=== PATIENT | female | born 1965 | race Caucasian/White ===

== ENCOUNTER 2024-07-26 14:19 | Emergency (ER) | payer OTHER, SELFPAY ==
[2024-07-26 14:23] VITALS: BP 148/81; PULSE 126; TEMP 37; O2SAT 98; BMI 20.5
--- NOTE | 2024-07-26 14:30 | ECG_ITS ---
[facility] Test Date: 2024-07-26 Pat Name: PARKER PUTNAM Department: Room: - Gender: Female [employer] Developer: : 1965 Requested By: Order Number: [id number] Reading MD: RAMSEY NAZARIO Measurements Intervals [place] Rate: 107 P: 67 WI: 140 QRS: 53 QRSD: 82 T: 66 QT: 334 QTc: 397 Interpretive Statements 1120 Sinus tachycardia 9140 abnormal rhythm ECG Compared to ECG 06/20/2019 05:56:33 Sinus rhythm no longer present Electronically Signed On 07-26-2024 18:03:50 EST by RAMSEY NAZARIO
[2024-07-26 14:31] VITALS: PULSE 108
[2024-07-26 14:33] VITALS: BP 132/87; PULSE 113
[2024-07-26 14:40] VITALS: O2SAT 99
[2024-07-26 14:45] LABS: Basophils Absolute Auto 0.1 10^3/uL (0.0-0.1); Basophils Percent Auto 0.8 % (0.2-2.0); Eosinophils Absolute Auto 0.3 10^3/uL (0.0-0.7); Hematocrit 44.1 % (36.0-48.0); Immature Granulocytes Abs Auto 0.01 10^3/uL (0.00-0.03); Immature Granulocytes Pct Auto 0.2 % (0.0-0.5); Lymphocytes Absolute Auto 3.6 10^3/uL (1.2-3.8); Lymphocytes Percent Auto 55.4 % (20.5-60.0); Mean Corpuscular Hemoglobin 32.8 pg (26.7-34.0); Mean Corpuscular Volume 96.5 fL (81.0-99.0); Monocytes Absolute Auto 0.4 10^3/uL (0.3-0.8); Monocytes Percent Auto 5.4 % (1.7-12.0); Neutrophils Absolute Auto 2.2 10^3/uL (1.4-6.5); Neutrophils Percent Auto 34.2 % (43.0-75.0); Platelet Count 193 10^3/uL (150-450); Red Blood Count 4.57 10^6/uL (4.20-5.40); Red Cell Distribution Width 12.3 % (11.0-15.0); White Blood Count 6.5 10^3/uL (4.0-11.0)
[2024-07-26] MEDS: KETOROLAC TROMETHAMINE 30 MG/ML VIAL 15 MG IVP (14:54)
[2024-07-26] MEDS: FAMOTIDINE/PF 20 MG/2 ML VIAL IV (14:54)
[2024-07-26 14:59] LABS: Prothrombin Time 9.7 sec (9.0-11.6)
[2024-07-26 15:00] VITALS: BP 134/82; PULSE 100; O2SAT 97
[2024-07-26 15:00] LABS: INR <0.93
[2024-07-26 15:01] LABS: Alanine Aminotransferase 25 U/L (14-59); Albumin Level 3.5 g/dL (3.4-5.0); Alkaline Phosphatase 82 U/L (46-116); Anion Gap 12.2; Aspartate Amino Transferase 28 U/L (15-37); BUN Creatinine Ratio 9.2; Bilirubin Total 0.4 mg/dL (0.2-1.0); Calcium 9.2 mg/dL (8.5-10.1); Carbon Dioxide 26.1 mmol/L (21.0-32.0); Chloride 109 mmol/L (98-107); D Dimer 0.46 mg/L FEU (<=0.59); Estimated GFR (African America >60 (>=60 mL/min/1.73m^2); Estimated GFR (Non-African Ame >60 (>=60 mL/min/1.73m^2); Globulin 3.6 g/dL; Glucose 126 mg/dL (74-106); Potassium 3.3 mmol/L (3.5-5.1); Sodium 144 mmol/L (136-145); Total Protein 7.1 g/dL (6.4-8.2)
[2024-07-26 15:04] LABS: Troponin I High Sensitivity 9.7 pg/mL (4.0-51.3)
[2024-07-26 15:34] VITALS: BP 124/82; PULSE 83; O2SAT 96
--- NOTE | 2024-07-26 15:44 | ED.CHESTPAI1 ---
HPI - Chest Pain General Chief Complaint: Chest Pain Stated Complaint: CHEST PAIN Time Seen by Provider: 07/26/24 14:29 Source: patient Mode of arrival: walk-in Limitations: no limitations History of Present Illness HPI narrative: The patient is coming to the ER with a 3 days history of left-sided chest pain that has been associated with taking deep breath or moving, mentioned that the pain is there only when she take a deep breath or moves or even touch the area, the patient denies any nausea vomiting coughing or any other concerns She is a smoker who smoked less than 1 pack of cigarette daily and is usually have a cough and that did not increase Related Data Previous Rx's ?Medication ?Instructions ?Recorded diclofenac sodium 75 mg 75 mg PO BID PRN pain #14 tabs 07/26/24 tablet,delayed release Allergies Allergy/AdvReac Type Severity Reaction Status Date / Time No Known Drug Allergies Allergy Verified 07/26/24 14:26 Review of Systems ROS Status of ROS 10 or more systems reviewed and unremarkable except as noted in history and below PFSH PFSH Social History Little interest or pleasure in doing things: not at all Feeling down, depressed, or hopeless: not at all Exam Narrative Exam Narrative: Nurses notes and vital signs reviewed and patient is not hypoxic. General: Well-appearing and in no apparent distress. Skin: Warm, dry, no pallor noted. No rash. Head: Normocephalic, atraumatic. Neck: Supple, non-tender. Eye: Pupils are equal, round and EOMI. No scleral icterus. Ears, Nose, Mouth, and Throat: TM are clear, no nasal mucosal hypertrophy. Oral mucosa is moist, no posterior oropharynx erythema, uvula is mid-line Cardiovascular: Regular Rate and Rhythm without murmur, gallop or rub. Respiratory: No accessory muscle use or respiratory distress. Lungs are clear to auscultation, no wheezing, rales or rhonchi Chest Wall: There is tenderness upon palpation of the left-sided chest wall just below the breast ,there is no rash and no ecchymosis Back: No midline thoracic or lumbar vertebral tenderness. No CVA tenderness Musculoskeletal: normal ROM, no calf or popliteal tenderness, no lower extremity edema/swelling GI: Abdomen is soft, non-distended. Normal bowel sounds. No masses appreciated. No tenderness to palpation. No rebound, guarding, or rigidity noted. Neurological: A&O x4. No cranial nerve dysfunction observed. No truncal ataxia. Constitutional Vital Signs, click to edit/add: Last Vital Signs Temp 98.6 F 07/26/24 14:23 Pulse 100 H 07/26/24 15:00 Resp 16 07/26/24 15:00 BP 134/82 07/26/24 15:00 Pulse Ox 97 07/26/24 15:00 O2 Del Method Room Air 07/26/24 14:40 Course Vital Signs Vital signs: Vital Signs Temperature 98.6 F 07/26/24 14:23 Pulse Rate 126 H 07/26/24 14:23 Respiratory Rate 20 07/26/24 14:23 Blood Pressure 148/81 H 07/26/24 14:23 Pulse Oximetry 98 07/26/24 14:23 Oxygen Delivery Method Room Air 07/26/24 14:23 Temperature 98.6 F 07/26/24 14:23 Pulse Rate 100 H 07/26/24 15:00 Respiratory Rate 16 07/26/24 15:00 Blood Pressure 134/82 07/26/24 15:00 Pulse Oximetry 97 07/26/24 15:00 Oxygen Delivery Method Room Air 07/26/24 14:40 MDM - Chest Pain MDM Narrative Medical decision making narrative: The patient EKG in the ER showing sinus tachycardia with a heart rate of [address] elevation or depression Chest x-ray showed no acute pathology CBC and chemistry showed no acute pathology with a mild hypokalemia and the troponin was negative The patient did mention that she has been taking her lisinopril twice for the last 2 days because she mentioned that it will help her pain and I did explain to her that she is not supposed to increase her blood pressure medication without consulting with her primary care doctor and right now she will go back to the 20 mg daily of lisinopril The patient was treated in the ER with Toradol and Pepcid She was discharged home with musculoskeletal pain control medication Voltaren Patient also advised again smoking cigarette The patient is to follow up with primary care physician in next 2-3 days or to return to the emergency department should any of the signs or symptoms worsen or new symptoms develop. The patient agrees with the following Diagnosis and Treatment plan and the patient will be discharged home. Lab Data Labs: Lab Results 07/26/24 Range/Units 14:35 WBC 6.5 (4.0-11.0) 10^3/uL RBC 4.57 (4.20-5.40) 10^6/uL Hgb 15.0 (12.0-16.0) g/dL Hct 44.1 (36.0-48.0) % MCV 96.5 (81.0-99.0) fL MCH 32.8 (26.7-34.0) pg MCHC 34.0 (29.9-35.2) g/dL RDW 12.3 (11.0-15.0) % Plt Count 193 (150-450) 10^3/uL MPV 9.0 L (9.5-13.5) fL Neut % (Auto) 34.2 L (43.0-75.0) % Lymph % (Auto) 55.4 (20.5-60.0) % [place] % (Auto) 5.4 (1.7-12.0) % Eos % (Auto) 4.0 (0.9-7.0) % Baso % (Auto) 0.8 (0.2-2.0) % Neut # (Auto) 2.2 (1.4-6.5) 10^3/uL Lymph # (Auto) 3.6 (1.2-3.8) 10^3/uL [place] # (Auto) 0.4 (0.3-0.8) 10^3/uL Eos # (Auto) 0.3 (0.0-0.7) 10^3/uL Baso # (Auto) 0.1 (0.0-0.1) 10^3/uL Abs Immat Gran (auto) 0.01 (0.00-0.03) 10^3/uL Imm/Tot Granulo (auto) 0.2 (0.0-0.5) % PT 9.7 (9.0-11.6) sec INR <0.93 D-Dimer 0.46 (<=0.59) mg/L FEU Sodium 144 (136-145) mmol/L Potassium 3.3 L (3.5-5.1) mmol/L Chloride 109 H (98-107) mmol/L Carbon Dioxide 26.1 (21.0-32.0) mmol/L Anion Gap 12.2 BUN 6.0 L (7.0-18.0) mg/dL Creatinine 0.65 (0.55-1.02) mg/dL Est GFR ( Amer) >60 (>=60 mL/min/1.73m^2) Est GFR (Non-Af Amer) >60 (>=60 mL/min/1.73m^2) BUN/Creatinine Ratio 9.2 Glucose 126 H (74-106) mg/dL Calcium 9.2 (8.5-10.1) mg/dL Total Bilirubin 0.4 (0.2-1.0) mg/dL AST 28 (15-37) U/L ALT 25 (14-59) U/L Alkaline Phosphatase 82 (46-116) U/L Troponin I High Sens 9.7 (4.0-51.3) pg/mL Total Protein 7.1 (6.4-8.2) g/dL Albumin 3.5 (3.4-5.0) g/dL Globulin 3.6 g/dL Albumin/Globulin Ratio 1.0 Discharge Plan Discharge Chief Complaint: Chest Pain Clinical Impression: Chest pain, Atypical chest pain Patient Disposition: Home, Self-Care Time of Disposition Decision: 15:47 Condition: Good Prescriptions / Home Meds: New diclofenac sodium 75 mg tablet,delayed release (DR/EC) 75 mg PO BID PRN (Reason: pain) Qty: 14 0RF Print Language: [place] Instructions: Chest Pain (DC), Chest Wall Pain (ED) Additional Instructions: Call the office of your primary care doctor to arrange for follow-up within the above-stated timeframe. Your ED visit was focused on your acute issue and does not replace primary care. You should review your labs, imaging, and diagnoses from this ED visit with your primary care physician. There may be non-emergent/ incidental findings that need further evaluation. You should review your vital signs including blood pressure with your PCP. If you were prescribed medications you should discuss possible side-effects and drug interactions with your pharmacist. Call 911 or go to the nearest Emergency Department if you develop any new or worsening symptoms. Seek immediate medical attention if you develop: new or worsening headache, nausea, vomiting, confusion, weakness, loss of motion in your arms or legs, loss of control of your urine or stool, difficulty waking from sleep, or any new or worsening symptoms. Referrals: Rasta Boothe [place] [Primary Care Provider] - 1 week
[2024-07-26 15:51] LABS: Amphetamine Screen Urine NEGATIVE (NEGATIVE); Barbiturates Screen Urine NEGATIVE (NEGATIVE); Benzodiazepines Screen Urine NEGATIVE (NEGATIVE); Buprenorphine Screen Urine NEGATIVE (NEGATIVE); Cannabinoid Screen Urine NEGATIVE (NEGATIVE); Cocaine Screen Urine NEGATIVE (NEGATIVE); Methadone Screen Urine NEGATIVE (NEGATIVE); Methamphetamines Screen Urine NEGATIVE (NEGATIVE); Opiate Screen Urine NEGATIVE (NEGATIVE); Oxycodone Screen Urine NEGATIVE (NEGATIVE); Phencyclidine Screen Urine NEGATIVE (NEGATIVE); Tricyclic Antidepressant Urine NEGATIVE (NEGATIVE)
== END 2024-07-26 16:03 | disposition home or self-care (01) ==
PROVIDERS: Emergency Provider Emergency Medicine; PCP Student in an Organized Health Care Education/Training Program
DX: R07.89 Other chest pain (principal); F17.210 Nicotine dependence, cigarettes, uncomplicated
CPT/HCPCS: 36415; 71045; 80053; 80307; 84484; 85025; 85378; 85610; 93005; 96374; 96375; 99285; J1885; J3490